=== PATIENT | female | born 1940 | race Caucasian/White ===

== ENCOUNTER 2018-05-15 13:31 | Inpatient (IN) | payer MEDICARE, BC ==
[~2018-05-15] VITALS: Ht 167.6 cm; Wt 81.6 kg
--- NOTE | ~2018-05-15 | H ---
[place] [address] HISTORY AND PHYSICAL Name: MACOFRIDA Room: [address] IN M.R.#: [id number] Admission: 05/15/18 Attend Phys: Esperanza Swanson DO Discharge: Date of : 36 Report #: [id number] THIS REPORT FOR: //name// CC: FAM unknown Esperanza Swanson DATE OF SERVICE: 05/15/2018 HISTORY OF PRESENT ILLNESS: This is a 77-year-old female, admitted to inpatient rehabilitation to facilitate safe discharge home, status post acute hospitalization on 05/12/2018 after several falls, increased weakness, with history of breast cancer, mastectomy, on chemotherapy, with bilateral lower extremity neuropathy, debilitated, alterations in activities of daily living, exacerbation of neuropathy due to the above with uncontrolled diabetes and multiple medical comorbidities. No changes since preadmission screening. Previous level of function was modified independent with activities of daily living. Current level of function is minimum to moderate assistance of 1-2 depending on therapy, activity and time of day, ambulating 100 feet with a front-wheeled walker with mild impairment of comprehension, expression, social interaction, problem solving and memory. Estimated length of stay is 12-14 days, with discharge disposition to the home setting where she has supportive family, accessible house, lives with son and has caregivers including son and daughter. No significant changes since the preadmission screening. PAST MEDICAL HISTORY: Diabetes, GERD, hyponatremia. History of breast cancer, on chemotherapy. Frequent falls, generalized weakness, bilateral lower extremity neuropathy, glaucoma with visual deficits, orthostatic hypotension, radiation therapy and chemotherapy. PAST SURGICAL HISTORY: Mastectomy, bilateral cataracts, glaucoma, thyroidectomy, left chest tumor removal. ALLERGIES: No known drug allergies. SOCIAL HISTORY: Former smoker, 1-2 drinks of alcohol per month. No illicit drug use. FAMILY HISTORY: Cancer and diabetes. REVIEW OF SYSTEMS: A 14-point review of systems is done and is negative except as mentioned in HPI, specifically no fever, chest pain, shortness of breath, abdominal pain or distention, change in bowel, change in bladder. PHYSICAL EXAMINATION: [place] [address] HISTORY AND PHYSICAL Name: MACOFRIDA Room: [address] IN [facility].#: [id number] Admission: 05/15/18 Attend Phys: Esperanza Swanson DO Discharge: Date of : 36 Report #: [id number] GENERAL: Alert, oriented, no apparent distress. VITAL SIGNS: Reviewed and are stable. HEENT: Head atraumatic, normocephalic. Pupils equal, round, reactive. ABDOMEN: Soft, nontender, nondistended. NEUROLOGIC: Cranial nerves 2-12 are grossly intact with no focal neuro deficits, 5/5 strength in bilateral upper and lower extremities. SKIN: Warm and dry. No rashes or lesions noted. ASSESSMENT: 1. Multiple falls. 2. Bilateral lower extremity neuropathy, multifactorial in nature. 3. Debility with alterations in activities of daily living from previous level of function. 4. Multiple medical comorbidities exacerbated by the above. PLAN: 1. Admission to inpatient rehabilitation. 2. PT, OT, speech, language, case management, nursing and HIMS to make evaluations and recommendations. 3. Plan of care is pending. 4. Team weekly. 5. Medications were reviewed, reconciled by myself and are available in the MAR. By: [id number] Swanson DO /nt
--- NOTE | ~2018-05-15 | PLAN ---
[address] [address] REHAB UNIT PLAN OF CARE Name: MACOFRIDA Room: [address] IN M.R.#: [id number] Admission: 05/15/18 Attend Phys: Esperanza Swanson DO Discharge: Date of : 36 Report #: [id number] THIS REPORT FOR: //name// CC: FAM tunde Swanson This is a 77-year-old female admitted to inpatient rehabilitation to facilitate safe discharge home, status post acute admission at [facility], status post multiple falls at home, ongoing and increasing weakness with bilateral lower extremity neuropathy, history of breast cancer with mastectomy, on chemotherapy for the last 4 weeks; alterations in activities of daily living, requiring increased therapy. Previous level of function was modified independent to independent with activities of daily living. Current level of function is minimum to moderate assistance of 1-2 depending on therapy, activity and time of day. [id number] impairment of comprehension, expression, social interaction, problem solving and memory. Estimated length of stay is 12-14 days with discharge disposition to the home setting where she has supportive family, caregivers including a son and a daughter, and an accessible house. Physical Therapy will see the patient 60-90 minutes per day, 5 days per week, working on upper and lower body strength, balance, coordination, navigation. Occupational Therapy will work with the patient 60-90 minutes per day, 5 days per week, working on upper and lower body strength, balance, coordination, navigation, bathing, dressing, and toileting. Speech and Language Pathology will work with the patient 30-90 minutes per day, 5 days per week, working on comprehension, expression, social interaction, problem solving and memory. This is an overall plan of care, may change from time to time. We will team weekly and make changes to plan of care as needed. By: [id number] Swanson DO /norberto
[2018-05-15] MEDS ORDERED: METFORMIN HCL500 MG PO (13:38)
[2018-05-15] MEDS ORDERED: SYNTHROID112 MC1 PO (13:38)
[2018-05-15] MEDS ORDERED: GLUCOPHAGE XR500 MG PO (13:40)
[2018-05-15] MEDS ORDERED: PREVACID 24HR15 MG PO (13:42)
[2018-05-15 14:12] VITALS: BP 169/77
[2018-05-15 20:17] VITALS: BP 147/75
[2018-05-16 04:33] LABS: HEMATOCRIT 35.9 % (37.0-47.0); HEMOGLOBIN 11.9 gm/dL (12.0-15.0); MCV 84.7 fL (80.0-100.0); RBC 4.24 mil/uL (4.20-5.00); RDW-CV 16.2 % (10.5-14.5); WBC 8.4 thou/uL (4.0-11.0)
[2018-05-16 04:34] LABS: CALCIUM 8.1 mg/dL (8.5-10.1); CREATININE 0.7 mg/dL (0.6-1.3); POTASSIUM 3.8 mmol/L (3.5-5.1)
[2018-05-16 07:00] VITALS: BP 157/81
[2018-05-16 08:00] VITALS: BP 157/81
[2018-05-16 20:02] VITALS: BP 180/84
[2018-05-17 08:16] VITALS: BP 114/73
[2018-05-17 19:00] VITALS: BP 150/81
[2018-05-18 08:56] VITALS: BP 136/77
[2018-05-18 19:15] VITALS: BP 167/80
[2018-05-19 08:00] VITALS: BP 140/77
[2018-05-19 19:15] VITALS: BP 125/67
[2018-05-20 08:19] VITALS: BP 166/77
[2018-05-20 19:20] VITALS: BP 130/67
[2018-05-21 07:59] VITALS: BP 181/86
[2018-05-21 15:22] LABS: URINE BILIRUBIN NEGATIVE (Negative); URINE BLOOD NEGATIVE (Negative); URINE CLARITY CLEAR; URINE COLOR YELLOW; URINE GLUCOSE-RANDOM NEGATIVE (Negative); URINE KETONES 1+ (Negative); URINE LEUKOCYTES-REFLEX TRACE (Negative); URINE NITRITE-REFLEX NEGATIVE (Negative); URINE PROTEIN NEGATIVE (Negative); URINE SPECIFIC GRAVITY 1.025 (1.005-1.030); URINE UROBILINOGEN 0.2 E.U./dl (0.2-1.0)
[2018-05-21 15:31] LABS: SQUAMOUS 0-3 Few /LPF (0-3)
[2018-05-21 15:32] LABS: BACTERIA-REFLEX 1-9 Few /HPF (None Seen); CASTS None Seen /LPF (None Seen); CRYSTALS None Seen /LPF (None Seen); URINE RBC 0-2 Rare /HPF (0-2); URINE WBC-REFLEX 0-5 Rare /HPF (0-5)
[2018-05-21 20:30] VITALS: BP 169/90
[2018-05-21 23:05] VITALS: BP 181/85
[2018-05-22 04:58] LABS: HEMATOCRIT 34.4 % (37.0-47.0); HEMOGLOBIN 11.4 gm/dL (12.0-15.0); MCH 27.6 pg (26.0-34.0); MCHC 33.2 g/dL (28.0-37.0); MCV 83.2 fL (80.0-100.0); MPV 7.3 fl. (7.2-11.1); RBC 4.14 mil/uL (4.20-5.00); WBC 8.1 thou/uL (4.0-11.0)
[2018-05-22 05:35] LABS: ALBUMIN 2.8 g/dL (3.4-5.0); CALCIUM 8.5 mg/dL (8.5-10.1); CREATININE 0.6 mg/dL (0.6-1.3); POTASSIUM 3.6 mmol/L (3.5-5.1); TOTAL BILIRUBIN 0.4 mg/dL (<0.1-1.0)
[2018-05-22 08:00] VITALS: BP 178/94
[2018-05-22 20:00] VITALS: BP 180/92
[2018-05-23 08:00] VITALS: BP 114/62
[2018-05-23 20:51] VITALS: BP 136/72
[2018-05-24 08:35] VITALS: BP 129/56
[2018-05-24 19:45] VITALS: BP 117/61
[2018-05-25 08:19] VITALS: BP 181/92
--- NOTE | 2018-05-25 13:52 | CON ---
[address] [address] CONSULTATION Name: FRIDA DEWEY Room: [address] ADM IN M.R.#: [id number] Admission: 05/15/18 Attend Phys: Esperanza Swanson DO Discharge: Date of : 36 Report #: [id number] THIS REPORT FOR: //name// CC: FAM unknown Esperanza Swanson DATE OF SERVICE: 05/22/2018 HISTORY OF PRESENT ILLNESS: This is a 77-year-old female patient who was evaluated by me because of some altered mental status. The patient does not provide any reliable history. I tried to call the patient's son, but I cannot reach him. I talked to the nurses and the history is from the records. It indicates that the patient had some fall and some weakness and then she was admitted here. She has a history of breast cancer, chemotherapy and neuropathy. The patient does not think she was much confused, but as the exam will indicate, the patient's memory has been poor. REVIEW OF SYSTEMS: Only from the record. This patient provides a history that she has history of cancer. She does not elaborate it further. She had some falls. Most of the questions she answers by saying "I do not know." She denies any vision problem or any new ENT, cardiac, respiratory, GI, , musculoskeletal, constitutional, dermatological, hematological, psychiatric, throat, allergic symptom associated with present symptomatology. She had multiple symptoms in the past including neuropathy. FAMILY HISTORY: Positive for diabetes. SOCIAL HISTORY: She used to smoke, take alcohol rarely. PHYSICAL EXAMINATION: Indicate she is alert. She can tell me what month it is. She talks very slowly. She could not tell me the date. Her memory and fund of knowledge is poor. Cranial nerve examination 2-12 appears unremarkable. She moves all 4 extremities, but very slowly. I tried to do the position sense and tone. She would not cooperate. She did not do the cerebellar sign. She could not cooperate with the fundus examination. Pulses are difficult to feel. She is moderately built. She does not have any dysmorphic features of eyes, ears and face and her vision and hearing looks adequate. Cardiac examination is unremarkable. No respiratory difficulty or rhonchi. Blood pressure is 178/94, respirations 16, pulse is 98.5. LABORATORY DATA: Indicate a white count, which is normal. She did have a CT scan of the head, which is reviewed that showed chronic changes. IMPRESSION: Very difficult to form in this patient because I cannot get any reliable history. It looks like this patient may be having some underlying dementia. I do not see much Parkinson feature, [place] [address] CONSULTATION Name: FRIDA DEWEY Room: [address] IN M.R.#: [id number] Admission: 05/15/18 Attend Phys: Esperanza Swanson DO Discharge: Date of : 36 Report #: [id number] difficulty. I need to talk to the family to get some reliable history and we will continue to make attempts to do that. RECOMMENDATIONS: 1. TSH. 2. Vitamin B12. 3. EEG. 4. We will try to talk to the family to see if we can get some reliable history in this patient to leave some further recommendation. Thank you very much for this referral. <ELECTRONICALLY SIGNED> By: Jeronimo Lynn MD 05/25/18 1352 [id number] Lynn MD /nt
--- NOTE | 2018-05-25 13:52 | EEG ---
[address] [address] EEG STUDY REPORT Name: FRIDA DEWEY Room: [address] IN M.R.#: [id number] Admission: 05/15/18 Attend Phys: Esperanza Swanson, Discharge: Date of : 36 Report #: [id number] THIS REPORT FOR: //name// CC: FAM unknown Esperanza Swanson DATE OF SERVICE: 05/22/2018 This patient is being evaluated for altered mental status. EEG was done by placing the electrodes by standard 10-20 system of electrode placement. Both referential and sequential montages were used for recording. Background activity on the right side is about 6 Hz, but on the left side is much slower, this is symmetrical activity. Photic stimulation is unremarkable. The patient became drowsy and that is associated with bilateral slowing on both sides. No active epileptiform activity was noticed. IMPRESSION: This is a severely abnormal EEG because it is slow and disorganized on both sides. That is a nonspecific abnormality, which can occur with encephalopathy, effect of psychotropic medication, dementia, etc. A left-sided lesion should also be excluded. <ELECTRONICALLY SIGNED> By: Jeronimo Lynn MD 05/25/18 1352 [id number] Lynn MD /nt
[2018-05-25 19:45] VITALS: BP 147/81
[2018-05-26 08:00] VITALS: BP 87/48
[2018-05-26 09:30] VITALS: BP 107/59
[2018-05-26 20:00] VITALS: BP 145/65
[2018-05-27] MEDS ORDERED: ASPIR 8181 MG PO (03:43)
[2018-05-27] MEDS ORDERED: NYAMYC15 GM TOP (03:54)
[2018-05-27] MEDS ORDERED: MAGOX 400400 MG PO (03:57)
[2018-05-27 04:24] VITALS: BP 145/65
[2018-05-27 07:30] VITALS: BP 133/67
[2018-05-27 14:25] VITALS: BP 145/65
== END 2018-05-27 13:30 | disposition home health service (06) | DRG 74 ==
LOC: M.REH 13:31
PROVIDERS: ADMIT Physical Medicine & Rehabilitation
DX: E11.42 Type 2 diabetes mellitus with diabetic polyneuropathy (principal); E87.1 Hypo-osmolality and hyponatremia; R53.81 Other malaise; C50.919 Malignant neoplasm of unspecified site of unspecified female breast; E11.65 Type 2 diabetes mellitus with hyperglycemia; K21.9 Gastro-esophageal reflux disease without esophagitis; Z96.1 Presence of intraocular lens; E11.39 Type 2 diabetes mellitus with other diabetic ophthalmic complication; H40.9 Unspecified glaucoma; R29.6 Repeated falls; H42 Glaucoma in diseases classified elsewhere; E89.0 Postprocedural hypothyroidism; Z83.3 Family history of diabetes mellitus; Z80.9 Family history of malignant neoplasm, unspecified; Z98.42 Cataract extraction status, left eye; Z98.41 Cataract extraction status, right eye; Z90.12 Acquired absence of left breast and nipple; Z87.891 Personal history of nicotine dependence; Z85.3 Personal history of malignant neoplasm of breast; Z92.21 Personal history of antineoplastic chemotherapy; Z80.8 Family history of malignant neoplasm of other organs or systems; Z90.10 Acquired absence of unspecified breast and nipple; Z79.84 Long term (current) use of oral hypoglycemic drugs